=== PATIENT | male | born 1970 | race Caucasian/White ===

== ENCOUNTER 2020-12-20 07:50 | Inpatient (IN) | payer OTHER ==
[2020-12-20 08:09] VITALS: BMI 24.4
[2020-12-20 09:36] LABS: BASO % 1.9 % (0-2.0); EOS % 4.7 % (0-4.5); HEMOGLOBIN 7.4 GM/dL (11.7-16.9); INR 1.28 (0.83-1.09); LYMPH % 16.8 % (8-40); MCHC 32.4 g/dl (32.0-35.9); MEAN PLT VOLUME 8.4 fl (7.5-11.1); NEUT % 60.6 % (42.8-82.8); PLATELET COUNT 156 K/MM3 (134-434); PROTHROMBIN TIME (PATIENT) 15.6 SEC (9.7-13.0); RBC 2.98 M/mm3 (4.00-5.60); RDW 24.2 % (11.9-15.9); WHITE BLOOD COUNT 4.8 K/mm3 (4.0-10.0)
[2020-12-20 09:39] LABS: ACTIVATED PTT 35.7 SECONDS (25.2-36.5)
[2020-12-20] MEDS ORDERED: LACTATED RINGERS SOLUTION 1000 ML INFUS.BAG IV STA (09:42)
[2020-12-20] MEDS ORDERED: PANTOPRAZOLE SODIUM 40 MG VIAL IVPUSH ONE (09:43)
[2020-12-20 09:56] LABS: ALBUMIN 3.3 g/dl (3.4-5.0); BLOOD UREA NITROGEN 23.8 mg/dL (7-18); CALCIUM 8.3 mg/dL (8.5-10.1)
[2020-12-20 09:59] LABS: CREATININE 0.5 mg/dL (0.55-1.3)
[2020-12-20 10:00] LABS: BILIRUBIN,TOTAL 0.8 mg/dL (0.2-1); TOT PROT 7.5 g/dl (6.4-8.2)
[2020-12-20] MEDS ORDERED: PANTOPRAZOLE SODIUM 40 MG/100 ML BAG IVPB ONE (10:03)
[2020-12-20] MEDS ORDERED: CEFTRIAXONE 1,000 MG in DEXTROSE 5%-WATER - 50 ML IVPB ONE (10:35)
[2020-12-20] MEDS ORDERED: OCTREOTIDE ACETATE 50 MCG/1 ML - 1 ML VIAL IVPUSH ONE (10:45)
[2020-12-20] MEDS ORDERED: CEFTRIAXONE 1 GM/50 ML BAG ONE (10:47)
[2020-12-20] MEDS ORDERED: OCTREOTIDE ACETATE 100 MCG/1 ML ONE (10:55)
[2020-12-20 14:54] VITALS: BP 110/59; PULSE 77; TEMP 98.8
== END 2020-12-20 18:33 | disposition left against medical advice (07) | DRG 253 ==
LOC: JER 07:50 → JERBED 13:56 → J6S 15:59
PROVIDERS: ADMIT Internal Medicine; ATTEND Internal Medicine
PROC: 30233N1 Transfusion of Nonautologous Red Blood Cells into Peripheral Vein, Percutaneous Approach (ICD-10-PCS; principal; 2020-12-20)
DX: K92.0 Hematemesis (principal); K21.9 Gastro-esophageal reflux disease without esophagitis; K70.30 Alcoholic cirrhosis of liver without ascites; D50.9 Iron deficiency anemia, unspecified; F10.10 Alcohol abuse, uncomplicated; K57.90 Diverticulosis of intestine, part unspecified, without perforation or abscess without bleeding; I85.10 Secondary esophageal varices without bleeding
CPT/HCPCS: 36415; 36430; 74177-TC; 80053; 82272; 83690; 85025; 85610; 85730; 86850; 86900; 86901; 86922; 93005; 93010; 99285-25; C9803; P9058; Q9967; U0003; U0005

== ENCOUNTER 2020-12-21 07:14 | Inpatient (IN) | payer OTHER ==
[2020-12-21 07:30] VITALS: BMI 25.0
[2020-12-21] MEDS ORDERED: CEFTRIAXONE 1,000 MG in DEXTROSE 5%-WATER - 50 ML IVPB ONE (07:49)
[2020-12-21] MEDS ORDERED: PANTOPRAZOLE SODIUM 40 MG VIAL IVPUSH ONE (07:52)
[2020-12-21] MEDS ORDERED: OCTREOTIDE ACETATE 50 MCG/1 ML - 1 ML VIAL IVPUSH ONE (07:53)
[2020-12-21] MEDS ORDERED: PANTOPRAZOLE SODIUM 40 MG/100 ML BAG IVPB ONE (08:10)
[2020-12-21] MEDS ORDERED: CEFTRIAXONE 1 GM/50 ML BAG ONE (08:12)
[2020-12-21 08:21] LABS: BLOOD UREA NITROGEN 17.6 mg/dL (7-18); CALCIUM 8.3 mg/dL (8.5-10.1)
[2020-12-21 08:22] LABS: BASO % 1.2 % (0-2.0); HEMATOCRIT 25.2 % (35.4-49); HEMOGLOBIN 8.1 GM/dL (11.7-16.9); LYMPH % 10.3 % (8-40); MCH 25.4 pg (25.7-33.7); MCHC 32.2 g/dl (32.0-35.9); MEAN CELL VOLUME 79.1 fl (80-96); MEAN PLT VOLUME 8.1 fl (7.5-11.1); MONO % 9.4 % (3.8-10.2); NEUT % 66.1 % (42.8-82.8); PLATELET COUNT 159 K/MM3 (134-434); RBC 3.18 M/mm3 (4.00-5.60); RDW 23.6 % (11.9-15.9); WHITE BLOOD COUNT 5.3 K/mm3 (4.0-10.0)
[2020-12-21 08:24] LABS: CREATININE 0.6 mg/dL (0.55-1.3)
[2020-12-21 08:26] LABS: BILIRUBIN,TOTAL 0.6 mg/dL (0.2-1); TOT PROT 6.9 g/dl (6.4-8.2)
[2020-12-21] MEDS ORDERED: OCTREOTIDE ACETATE 100 MCG/1 ML ONE (09:08)
[2020-12-21] MEDS ORDERED: PNEUMOC 13-VAL CONJ-DIP CRM/PF 0.5 ML DISP.SYRIN IM ONE (12:00)
[2020-12-21] MEDS ORDERED: ONDANSETRON 4 MG/2 ML VIAL IVPUSH PRN (13:04)
[2020-12-21] MEDS ORDERED: ACETAMINOPHEN 325 MG TABLET (FP) PO PRN (13:04)
[2020-12-21] MEDS: FLU VACCINE (FLULAVAL) PF 60 MCG/0.5 ML SYRINGE 2020-2021 IM ONE ×3 (13:08→13:35)
[2020-12-21] MEDS: PNEUMOCOCCAL 23 VACCINE 0.5 ML VIAL IM ONE ×2 (13:09→13:20)
[2020-12-21] MEDS ORDERED: BUPROPION HCL 200 MG PO PRN (13:27)
[2020-12-21] MEDS ORDERED: FOLIC ACID INJECTION - 1 MG, THIAMINE HCL 100 MG, MULTIVIT INJECTION ADULT 10 ML in SOD... IVPB ONE (16:00)
[2020-12-21] MEDS ORDERED: PT OWN MED DRAWER 7, Y5N ONE (21:16)
[2020-12-21] MEDS: NADOLOL 20 MG TABLET (FP) PO SCH (21:36)
[2020-12-22] MEDS: OCTREOTIDE ACETATE 200 MCG, OCTREOTIDE ACETATE 1,000 MCG in DEXTROSE 5%-WATER - 496 ML IVPB SCH ×3 (04:37→13:12)
[2020-12-22 08:46] LABS: HEMATOCRIT 23.2 % (35.4-49); HEMOGLOBIN 7.6 GM/dL (11.7-16.9); MCH 25.7 pg (25.7-33.7); MCHC 32.8 g/dl (32.0-35.9); MEAN CELL VOLUME 78.4 fl (80-96); MEAN PLT VOLUME 8.4 fl (7.5-11.1); PLATELET COUNT 145 K/MM3 (134-434); RBC 2.95 M/mm3 (4.00-5.60); RDW 23.7 % (11.9-15.9); WHITE BLOOD COUNT 3.7 K/mm3 (4.0-10.0)
[2020-12-22 09:03] LABS: CALCIUM 7.1 mg/dL (8.5-10.1)
[2020-12-22 09:04] LABS: BLOOD UREA NITROGEN 6.7 mg/dL (7-18)
[2020-12-22 09:07] LABS: CREATININE 0.5 mg/dL (0.55-1.3)
[2020-12-22] MEDS: FOLIC ACID 1 MG TABLET (FP) PO SCH (09:39)
[2020-12-22] MEDS ORDERED: PANTOPRAZOLE SODIUM 40 MG VIAL IVPUSH SCH ×2 (10:00→22:00)
[2020-12-22] MEDS: SODIUM CHLORIDE 1,000 ML IV SCH ×2 (11:04→22:47)
[2020-12-22] MEDS ORDERED: CEFTRIAXONE 1 GM in DEXTROSE 5%-WATER - 50 ML IVPB ONE (11:04)
[2020-12-22] MEDS ORDERED: DEXTROSE 5%-WATER - 50 ML IVPB ONE (13:06)
[2020-12-22] MEDS ORDERED: cefTRIAXone SODIUM 1 GM VIAL ONE (13:06)
[2020-12-22] MEDS ORDERED: MIDAZOLAM HCL 2 MG/2 ML SINGLE DOSE VIAL ONE (13:54)
[2020-12-22] MEDS ORDERED: BISACODYL 5 MG TABLET.DR (FP) PO ONE (17:00)
[2020-12-22] MEDS ORDERED: POLYETHYLENE GLYCOL 3350 255 GM BTL PO ONE (18:00)
[2020-12-22 19:17] LABS: HEMATOCRIT 25.6 % (35.4-49); HEMOGLOBIN 8.2 GM/dL (11.7-16.9); MCH 25.8 pg (25.7-33.7); MEAN CELL VOLUME 80.5 fl (80-96); MEAN PLT VOLUME 8.3 fl (7.5-11.1); PLATELET COUNT 159 K/MM3 (134-434); RBC 3.18 M/mm3 (4.00-5.60); RDW 23.4 % (11.9-15.9); WHITE BLOOD COUNT 3.8 K/mm3 (4.0-10.0)
[2020-12-22] MEDS ORDERED: PT OWN MED DRAWER 7, Y5N ONE (21:15)
[2020-12-22] MEDS: NADOLOL 20 MG TABLET (FP) PO SCH (21:23)
[2020-12-23 07:17] LABS: BASO % 2.1 % (0-2.0); HEMOGLOBIN 7.7 GM/dL (11.7-16.9); LYMPH % 21.5 % (8-40); MCH 26.2 pg (25.7-33.7); MCHC 33.3 g/dl (32.0-35.9); MEAN CELL VOLUME 78.6 fl (80-96); MEAN PLT VOLUME 7.6 fl (7.5-11.1); MONO % 12.8 % (3.8-10.2); NEUT % 50.6 % (42.8-82.8); PLATELET COUNT 155 K/MM3 (134-434); RBC 2.92 M/mm3 (4.00-5.60); RDW 23.4 % (11.9-15.9); WHITE BLOOD COUNT 3.5 K/mm3 (4.0-10.0)
[2020-12-23 07:31] LABS: CALCIUM 7.1 mg/dL (8.5-10.1)
[2020-12-23 07:32] LABS: MAGNESIUM 1.8 mg/dL (1.8-2.4)
[2020-12-23 07:34] LABS: ALBUMIN 2.6 g/dl (3.4-5.0); BLOOD UREA NITROGEN 4.3 mg/dL (7-18); CREATININE 0.5 mg/dL (0.55-1.3)
[2020-12-23 07:35] LABS: PHOSPHOROUS 2.8 mg/dL (2.5-4.9)
[2020-12-23 07:36] LABS: BILIRUBIN,TOTAL 0.7 mg/dL (0.2-1)
[2020-12-23 09:17] LABS: ANISOCYTOSIS 2+; MACROCYTOSIS 0; OVALOCYTE 1+; PLATELET ESTIMATE DECREASED; TARGET CELLS 1+
[2020-12-23] MEDS ORDERED: SPIRONOLACTONE 25 MG TABLET PO SCH (10:00)
[2020-12-23] MEDS: FOLIC ACID 1 MG TABLET (FP) PO SCH (10:44)
[2020-12-23] MEDS ORDERED: PT OWN MED DRAWER 7, Y5N ONE (21:41)
[2020-12-23] MEDS: NADOLOL 20 MG TABLET (FP) PO SCH (21:42)
[2020-12-24 07:52] LABS: BASO % 1.6 % (0-2.0); EOS % 7.5 % (0-4.5); HEMATOCRIT 23.1 % (35.4-49); HEMOGLOBIN 7.7 GM/dL (11.7-16.9); LYMPH % 28.2 % (8-40); MCHC 33.1 g/dl (32.0-35.9); MEAN CELL VOLUME 78.5 fl (80-96); MEAN PLT VOLUME 7.8 fl (7.5-11.1); MONO % 14.5 % (3.8-10.2); NEUT % 48.2 % (42.8-82.8); PLATELET COUNT 172 K/MM3 (134-434); RBC 2.94 M/mm3 (4.00-5.60); RDW 23.4 % (11.9-15.9); WHITE BLOOD COUNT 3.6 K/mm3 (4.0-10.0)
[2020-12-24 08:05] LABS: ALBUMIN 2.8 g/dl (3.4-5.0); CALCIUM 7.7 mg/dL (8.5-10.1)
[2020-12-24 08:06] LABS: BLOOD UREA NITROGEN 5.3 mg/dL (7-18); MAGNESIUM 1.8 mg/dL (1.8-2.4)
[2020-12-24 08:09] LABS: CREATININE 0.4 mg/dL (0.55-1.3); PHOSPHOROUS 3.4 mg/dL (2.5-4.9)
[2020-12-24 08:10] LABS: BILIRUBIN,TOTAL 0.6 mg/dL (0.2-1); TOT PROT 6.2 g/dl (6.4-8.2)
[2020-12-24] MEDS: FOLIC ACID 1 MG TABLET (FP) PO SCH (10:03)
[2020-12-24 10:56] LABS: ANISOCYTOSIS 1+; MACROCYTOSIS 0; PLATELET ESTIMATE NORMAL
[2020-12-24 13:35] LABS: BASO % 1.3 % (0-2.0); EOS % 7.5 % (0-4.5); HEMATOCRIT 25.1 % (35.4-49); LYMPH % 23.5 % (8-40); MCH 25.5 pg (25.7-33.7); MCHC 31.7 g/dl (32.0-35.9); MEAN CELL VOLUME 80.3 fl (80-96); MEAN PLT VOLUME 8.3 fl (7.5-11.1); MONO % 13.1 % (3.8-10.2); NEUT % 54.6 % (42.8-82.8); PLATELET COUNT 171 K/MM3 (134-434); RBC 3.12 M/mm3 (4.00-5.60); RDW 23.6 % (11.9-15.9); WHITE BLOOD COUNT 4.5 K/mm3 (4.0-10.0)
[2020-12-24 14:19] VITALS: BP 112/62; PULSE 62; TEMP 98.3
== END 2020-12-24 16:52 | disposition home or self-care (01) | DRG 244 ==
LOC: JER 07:14 → JERBED 07:47 → J7W 10:33
PROVIDERS: ADMIT Internal Medicine; ATTEND Student in an Organized Health Care Education/Training Program
PROC: 0DJ08ZZ Inspection of Upper Intestinal Tract, Via Natural or Artificial Opening Endoscopic (ICD-10-PCS; principal; 2020-12-22 11:00)
PROC: 0DBP8ZX Excision of Rectum, Via Natural or Artificial Opening Endoscopic, Diagnostic (ICD-10-PCS; 2020-12-23)
DX: K57.31 Diverticulosis of large intestine without perforation or abscess with bleeding (principal); K70.30 Alcoholic cirrhosis of liver without ascites; F32.9 Major depressive disorder, single episode, unspecified; D62 Acute posthemorrhagic anemia; K92.0 Hematemesis; D50.9 Iron deficiency anemia, unspecified; K64.9 Unspecified hemorrhoids; K76.6 Portal hypertension; K31.89 Other diseases of stomach and duodenum; K29.70 Gastritis, unspecified, without bleeding
CPT/HCPCS: 36415; 80048; 80053; 82728; 83540; 83550; 83735; 84100; 85025; 85027; 86850; 86900; 86901; 86922; 88305-TC; 90732; 93005; 93010; 99285-25; G0008; G0009; Q2036

== ENCOUNTER 2022-01-17 15:11 | Inpatient (IN) | payer OTHER ==
[2022-01-17 15:28] VITALS: BMI 23.4
[2022-01-17] MEDS ORDERED: PANTOPRAZOLE SODIUM 40 MG VIAL IVPUSH ONE (17:21)
[2022-01-17] MEDS ORDERED: OCTREOTIDE ACETATE 50 MCG/1 ML - 1 ML VIAL IVPUSH ONE (17:21)
[2022-01-17] MEDS ORDERED: CEFTRIAXONE 1,000 MG in DEXTROSE 5%-WATER - 50 ML IVPB ONE (17:23)
[2022-01-17] MEDS ORDERED: CEFTRIAXONE 1 GM/50 ML BAG ONE (17:31)
[2022-01-17] MEDS ORDERED: PANTOPRAZOLE SODIUM 40 MG VIAL ONE (17:31)
[2022-01-17] MEDS ORDERED: OCTREOTIDE ACETATE 500 MCG/1 ML - 1 ML VIAL ONE (17:34)
[2022-01-17] MEDS ORDERED: ONDANSETRON 4 MG/2 ML VIAL IVPUSH ONE (17:36)
[2022-01-17] MEDS ORDERED: ONDANSETRON 4 MG/2 ML VIAL ONE (17:49)
[2022-01-17 17:55] LABS: BASO % 0.9 % (0-2.0); EOS % 1.1 % (0-4.5); HEMATOCRIT 28.3 % (35.4-49); HEMOGLOBIN 9.4 GM/dL (11.7-16.9); LYMPH % 19.6 % (8-40); MCHC 33.4 g/dl (32.0-35.9); MEAN CELL VOLUME 83.8 fl (80-96); MEAN PLT VOLUME 9.3 fl (7.5-11.1); MONO % 10.5 % (3.8-10.2); NEUT % 67.9 % (42.8-82.8); PLATELET COUNT 110 10^3/uL (134-434); RBC 3.38 M/mm3 (4.00-5.60); RDW 18.8 % (11.9-15.9); WHITE BLOOD COUNT 8.1 K/mm3 (4.0-10.0)
[2022-01-17] MEDS ORDERED: OCTREOTIDE ACETATE 200 MCG, OCTREOTIDE ACETATE 1,000 MCG in DEXTROSE 5%-WATER - 496 ML IVPB SCH (18:00)
[2022-01-17 18:03] LABS: INR 1.4 (0.83-1.09); PROTHROMBIN TIME (PATIENT) 16.1 SEC (9.7-13.0)
[2022-01-17 18:06] LABS: ACTIVATED PTT 32.9 SECONDS (25.2-36.5)
[2022-01-17 18:13] LABS: CALCIUM 8.3 mg/dL (8.5-10.1)
[2022-01-17 18:14] LABS: ALBUMIN 3.2 g/dl (3.4-5.0); BLOOD UREA NITROGEN 32.1 mg/dL (7-18)
[2022-01-17 18:17] LABS: CREATININE 0.6 mg/dL (0.55-1.3)
[2022-01-17 18:19] LABS: BILIRUBIN,TOTAL 1.3 mg/dL (0.2-1); TOT PROT 6.9 g/dl (6.4-8.2)
[2022-01-17] MEDS ORDERED: SODIUM CHLORIDE 0.9% 500 ML INFUS.BAG IV ONE (18:31)
[2022-01-17 22:15] LABS: URINE APPEARANCE CLEAR; URINE BILIRUBIN NEGATIVE (NEGATIVE); URINE COLOR ORANGE; URINE GLUCOSE (UA) NEGATIVE (NEGATIVE); URINE KETONE 1+ (NEGATIVE); URINE LEUK ESTERASE NEGATIVE (NEGATIVE); URINE NITRITE NEGATIVE (NEGATIVE); URINE PROTEIN NEGATIVE (NEGATIVE); URINE UROBILINOGEN 0.2 mg/dL (0.2-1.0)
[2022-01-18] MEDS: SODIUM CHLORIDE 1,000 ML IV SCH ×2 (05:14→19:45)
[2022-01-18 08:59] LABS: BASO % 1.4 % (0-2.0); EOS % 2.6 % (0-4.5); HEMATOCRIT 23.9 % (35.4-49); HEMOGLOBIN 8.1 GM/dL (11.7-16.9); LYMPH % 15.6 % (8-40); MCH 28.7 pg (25.7-33.7); MCHC 33.7 g/dl (32.0-35.9); MEAN CELL VOLUME 85.2 fl (80-96); NEUT % 70.4 % (42.8-82.8); PLATELET COUNT 72 10^3/uL (134-434); RBC 2.81 M/mm3 (4.00-5.60); RDW 19.3 % (11.9-15.9); WHITE BLOOD COUNT 3.8 K/mm3 (4.0-10.0)
[2022-01-18 09:17] LABS: VENOUS O2 SATURATION 95.9 % (70-80); VENOUS PCO2 37.7 mmHg (38-52); VENOUS PH 7.427 (7.310-7.410)
[2022-01-18 09:26] LABS: ALBUMIN 2.8 g/dl (3.4-5.0)
[2022-01-18 09:27] LABS: CALCIUM 7.7 mg/dL (8.5-10.1); MAGNESIUM 2.1 mg/dL (1.8-2.4)
[2022-01-18 09:29] LABS: CREATININE 0.6 mg/dL (0.55-1.3); PHOSPHOROUS 2.4 mg/dL (2.5-4.9)
[2022-01-18 09:30] LABS: BILIRUBIN,TOTAL 1.6 mg/dL (0.2-1)
[2022-01-18] MEDS ORDERED: PANTOPRAZOLE SODIUM 80 MG in SODIUM CHLORIDE 100 ML IVPB SCH (09:30)
[2022-01-18 09:31] LABS: TOT PROT 5.6 g/dl (6.4-8.2)
[2022-01-18] MEDS ORDERED: PANTOPRAZOLE SODIUM 40 MG VIAL IVPUSH SCH (10:00)
[2022-01-18] MEDS ORDERED: CEFTRIAXONE 1 GM in DEXTROSE 5%-WATER - 50 ML IVPB SCH (10:00)
[2022-01-18] MEDS ORDERED: PANTOPRAZOLE SODIUM 160 MG in SODIUM CHLORIDE 290 ML IVPB SCH (10:15)
[2022-01-18] MEDS ORDERED: CEFTRIAXONE 1 GM/50 ML BAG ONE (10:24)
[2022-01-18 12:50] LABS: BASO % 0.3 % (0-2.0); EOS % 3.2 % (0-4.5); HEMATOCRIT 23.9 % (35.4-49); HEMOGLOBIN 7.9 GM/dL (11.7-16.9); LYMPH % 18.8 % (8-40); MCH 28.8 pg (25.7-33.7); MEAN CELL VOLUME 87.1 fl (80-96); MEAN PLT VOLUME 8.9 fl (7.5-11.1); MONO % 9.9 % (3.8-10.2); NEUT % 67.8 % (42.8-82.8); PLATELET COUNT 68 10^3/uL (134-434); RBC 2.75 M/mm3 (4.00-5.60); RDW 19.9 % (11.9-15.9); WHITE BLOOD COUNT 3.4 K/mm3 (4.0-10.0)
[2022-01-18] MEDS: PANTOPRAZOLE 40 MG TABLET PO SCH (13:14)
[2022-01-18] MEDS: MUPIROCIN 2% TOPICAL OINTMENT FOR DECOLONIZATION NS SCH ×2 (16:24→21:21)
[2022-01-18] MEDS: CHLORHEXIDINE GLUCONATE 4% CLEANSER FOR DECOLONIZATION TP SCH (21:09)
[2022-01-19] MEDS: SODIUM CHLORIDE 1,000 ML IV SCH (04:30)
[2022-01-19 07:13] LABS: HEMOGLOBIN 8.3 GM/dL (11.7-16.9); MCH 29.4 pg (25.7-33.7); MCHC 34.4 g/dl (32.0-35.9); MEAN CELL VOLUME 85.3 fl (80-96); MEAN PLT VOLUME 8.9 fl (7.5-11.1); PLATELET COUNT 70 10^3/uL (134-434); RBC 2.81 M/mm3 (4.00-5.60); RDW 19.3 % (11.9-15.9); WHITE BLOOD COUNT 3.3 K/mm3 (4.0-10.0)
[2022-01-19 08:41] LABS: CALCIUM 7.7 mg/dL (8.5-10.1)
[2022-01-19 08:42] LABS: ALBUMIN 2.9 g/dl (3.4-5.0); BLOOD UREA NITROGEN 7.6 mg/dL (7-18); MAGNESIUM 2.1 mg/dL (1.8-2.4)
[2022-01-19 08:45] LABS: CREATININE 0.5 mg/dL (0.55-1.3); PHOSPHOROUS 2.6 mg/dL (2.5-4.9)
[2022-01-19 08:46] LABS: BILIRUBIN,TOTAL 1.1 mg/dL (0.2-1); TOT PROT 5.7 g/dl (6.4-8.2)
[2022-01-19] MEDS: PANTOPRAZOLE 40 MG TABLET PO SCH (09:23)
[2022-01-19] MEDS: NADOLOL 20 MG TABLET (FP) PO SCH (09:23)
[2022-01-19] MEDS ORDERED: POTASSIUM CHLORIDE TABS 20 MEQ TABLET.ER (FP) PO ONE (10:00)
[2022-01-19] MEDS: MUPIROCIN 2% TOPICAL OINTMENT FOR DECOLONIZATION NS SCH ×2 (10:18→22:23)
[2022-01-19] MEDS ORDERED: FLU VACC QS2021-22(6MOS UP)/PF 60 MCG/0.5 ML SYRINGE IM ONE (15:00)
[2022-01-19] MEDS ORDERED: BISACODYL 5 MG TABLET.DR (FP) PO ONE (16:57)
[2022-01-19] MEDS ORDERED: PEG 3350/NA SULF BICARB CL/KCL 4000 ML SOLN.RECON PO ONE (17:00)
[2022-01-19 19:34] LABS: HEMATOCRIT 28.7 % (35.4-49); HEMOGLOBIN 9.6 GM/dL (11.7-16.9); MCH 29.2 pg (25.7-33.7); MCHC 33.4 g/dl (32.0-35.9); MEAN CELL VOLUME 87.3 fl (80-96); MEAN PLT VOLUME 8.8 fl (7.5-11.1); PLATELET COUNT 98 10^3/uL (134-434); RBC 3.29 M/mm3 (4.00-5.60); RDW 19.7 % (11.9-15.9); WHITE BLOOD COUNT 5.3 K/mm3 (4.0-10.0)
[2022-01-19] MEDS: CHLORHEXIDINE GLUCONATE 4% CLEANSER FOR DECOLONIZATION TP SCH (22:23)
[2022-01-20 06:44] LABS: BASO % 1.5 % (0-2.0); EOS % 7.5 % (0-4.5); HEMATOCRIT 26.9 % (35.4-49); LYMPH % 23.7 % (8-40); MCH 29.1 pg (25.7-33.7); MCHC 33.4 g/dl (32.0-35.9); MEAN PLT VOLUME 9.2 fl (7.5-11.1); MONO % 12.5 % (3.8-10.2); NEUT % 54.8 % (42.8-82.8); PLATELET COUNT 86 10^3/uL (134-434); RBC 3.09 M/mm3 (4.00-5.60); RDW 20.3 % (11.9-15.9); WHITE BLOOD COUNT 3.5 K/mm3 (4.0-10.0)
[2022-01-20 07:10] LABS: ALBUMIN 3.1 g/dl (3.4-5.0); BLOOD UREA NITROGEN 7.3 mg/dL (7-18); CALCIUM 8.1 mg/dL (8.5-10.1); MAGNESIUM 2.1 mg/dL (1.8-2.4)
[2022-01-20 07:13] LABS: CREATININE 0.5 mg/dL (0.55-1.3); PHOSPHOROUS 3.4 mg/dL (2.5-4.9)
[2022-01-20 07:14] LABS: BILIRUBIN,TOTAL 0.9 mg/dL (0.2-1); TOT PROT 6.1 g/dl (6.4-8.2)
[2022-01-20] MEDS: MUPIROCIN 2% TOPICAL OINTMENT FOR DECOLONIZATION NS SCH ×2 (09:26→22:38)
[2022-01-20] MEDS: PANTOPRAZOLE 40 MG TABLET PO SCH (09:26)
[2022-01-20] MEDS: NADOLOL 20 MG TABLET (FP) PO SCH (09:26)
[2022-01-20] MEDS ORDERED: NADOLOL 20 MG TABLET (FP) PO SCH ×2 (14:30→16:03)
[2022-01-20 16:41] LABS: CALCIUM 7.9 mg/dL (8.5-10.1)
[2022-01-20 16:43] LABS: MAGNESIUM 2.2 mg/dL (1.8-2.4)
[2022-01-20 16:45] LABS: CREATININE 0.7 mg/dL (0.55-1.3); PHOSPHOROUS 2.7 mg/dL (2.5-4.9)
[2022-01-20] MEDS: CHLORHEXIDINE GLUCONATE 4% CLEANSER FOR DECOLONIZATION TP SCH (22:38)
[2022-01-21 07:21] LABS: BASO % 1.4 % (0-2.0); EOS % 6.3 % (0-4.5); HEMOGLOBIN 9.1 GM/dL (11.7-16.9); LYMPH % 21.3 % (8-40); MCH 29.2 pg (25.7-33.7); MCHC 33.8 g/dl (32.0-35.9); MEAN CELL VOLUME 86.5 fl (80-96); MEAN PLT VOLUME 8.9 fl (7.5-11.1); MONO % 16.7 % (3.8-10.2); NEUT % 54.3 % (42.8-82.8); PLATELET COUNT 96 10^3/uL (134-434); RBC 3.12 M/mm3 (4.00-5.60); RDW 20.3 % (11.9-15.9); WHITE BLOOD COUNT 3.4 K/mm3 (4.0-10.0)
[2022-01-21 07:41] LABS: ALBUMIN 3.1 g/dl (3.4-5.0); BLOOD UREA NITROGEN 7.6 mg/dL (7-18); MAGNESIUM 2.1 mg/dL (1.8-2.4)
[2022-01-21 07:45] LABS: CREATININE 0.5 mg/dL (0.55-1.3); PHOSPHOROUS 3.4 mg/dL (2.5-4.9)
[2022-01-21 07:46] LABS: BILIRUBIN,TOTAL 1.1 mg/dL (0.2-1); TOT PROT 6.1 g/dl (6.4-8.2)
[2022-01-21] MEDS: MUPIROCIN 2% TOPICAL OINTMENT FOR DECOLONIZATION NS SCH ×2 (09:34→22:17)
[2022-01-21] MEDS: PANTOPRAZOLE 40 MG TABLET PO SCH (09:35)
[2022-01-21] MEDS: CHLORHEXIDINE GLUCONATE 4% CLEANSER FOR DECOLONIZATION TP SCH (22:17)
[2022-01-22 07:02] LABS: EOS % 3.9 % (0-4.5); HEMATOCRIT 27.6 % (35.4-49); HEMOGLOBIN 9.3 GM/dL (11.7-16.9); LYMPH % 14.9 % (8-40); MCH 29.3 pg (25.7-33.7); MCHC 33.5 g/dl (32.0-35.9); MEAN CELL VOLUME 87.4 fl (80-96); MEAN PLT VOLUME 9.5 fl (7.5-11.1); MONO % 15.6 % (3.8-10.2); NEUT % 64.6 % (42.8-82.8); PLATELET COUNT 107 10^3/uL (134-434); RBC 3.16 M/mm3 (4.00-5.60); RDW 20.5 % (11.9-15.9); WHITE BLOOD COUNT 5.1 K/mm3 (4.0-10.0)
[2022-01-22 07:07] LABS: INR 1.29 (0.83-1.09); PROTHROMBIN TIME (PATIENT) 14.9 SEC (9.7-13.0)
[2022-01-22 07:24] LABS: CALCIUM 8.1 mg/dL (8.5-10.1)
[2022-01-22 07:26] LABS: ALBUMIN 3.1 g/dl (3.4-5.0); BLOOD UREA NITROGEN 8.4 mg/dL (7-18)
[2022-01-22 07:29] LABS: BILIRUBIN,TOTAL 0.8 mg/dL (0.2-1); CREATININE 0.6 mg/dL (0.55-1.3); TOT PROT 6.3 g/dl (6.4-8.2)
[2022-01-22 09:15] LABS: ANISOCYTOSIS 1+; MACROCYTOSIS 1+
[2022-01-22] MEDS: PANTOPRAZOLE 40 MG TABLET PO SCH (10:51)
[2022-01-22] MEDS: MUPIROCIN 2% TOPICAL OINTMENT FOR DECOLONIZATION NS SCH (10:52)
[2022-01-22] MEDS: CHLORHEXIDINE GLUCONATE 4% CLEANSER FOR DECOLONIZATION TP SCH (21:26)
[2022-01-23 07:13] LABS: BASO % 1.2 % (0-2.0); EOS % 3.3 % (0-4.5); HEMATOCRIT 27.9 % (35.4-49); HEMOGLOBIN 9.2 GM/dL (11.7-16.9); LYMPH % 16.6 % (8-40); MCH 28.8 pg (25.7-33.7); MCHC 33.1 g/dl (32.0-35.9); MEAN CELL VOLUME 87.1 fl (80-96); MEAN PLT VOLUME 9.4 fl (7.5-11.1); MONO % 19.2 % (3.8-10.2); NEUT % 59.7 % (42.8-82.8); PLATELET COUNT 117 10^3/uL (134-434); RDW 19.9 % (11.9-15.9); WHITE BLOOD COUNT 5.4 K/mm3 (4.0-10.0)
[2022-01-23 07:37] LABS: ALBUMIN 3.1 g/dl (3.4-5.0); BLOOD UREA NITROGEN 7.6 mg/dL (7-18); CALCIUM 8.2 mg/dL (8.5-10.1)
[2022-01-23 07:40] LABS: CREATININE 0.6 mg/dL (0.55-1.3)
[2022-01-23 07:41] LABS: BILIRUBIN,TOTAL 0.8 mg/dL (0.2-1); TOT PROT 6.4 g/dl (6.4-8.2)
[2022-01-23] MEDS: PANTOPRAZOLE 40 MG TABLET PO SCH (09:05)
[2022-01-23] MEDS ORDERED: CHLORHEXIDINE GLUCONATE 4% CLEANSER FOR DECOLONIZATION TP SCH (22:00)
[2022-01-24 09:15] LABS: BASO % 1.3 % (0-2.0); HEMATOCRIT 27.1 % (35.4-49); LYMPH % 17.3 % (8-40); MCH 28.6 pg (25.7-33.7); MCHC 33.1 g/dl (32.0-35.9); MEAN CELL VOLUME 86.4 fl (80-96); MEAN PLT VOLUME 9.1 fl (7.5-11.1); MONO % 18.1 % (3.8-10.2); NEUT % 60.3 % (42.8-82.8); PLATELET COUNT 117 10^3/uL (134-434); RBC 3.14 M/mm3 (4.00-5.60); RDW 20.1 % (11.9-15.9); WHITE BLOOD COUNT 5.1 K/mm3 (4.0-10.0)
[2022-01-24 09:26] LABS: BLOOD UREA NITROGEN 9.1 mg/dL (7-18); CALCIUM 8.1 mg/dL (8.5-10.1)
[2022-01-24 09:29] LABS: CREATININE 0.5 mg/dL (0.55-1.3)
[2022-01-24] MEDS: PANTOPRAZOLE 40 MG TABLET PO SCH (09:44)
[2022-01-24] MEDS ORDERED: BISACODYL 5 MG TABLET.DR (FP) PO ONE (16:00)
[2022-01-24] MEDS ORDERED: PEG 3350/NA SULF BICARB CL/KCL 4000 ML SOLN.RECON PO ONE (17:00)
[2022-01-25] MEDS ORDERED: INSULIN (NOVOLOG) ASPART 100 UNITS/ML 10ML VIAL ONE (07:44)
[2022-01-25] MEDS: PANTOPRAZOLE 40 MG TABLET PO SCH (10:05)
[2022-01-25 12:04] LABS: BASO % 1.7 % (0-2.0); HEMATOCRIT 27.4 % (35.4-49); HEMOGLOBIN 9.1 GM/dL (11.7-16.9); LYMPH % 20.4 % (8-40); MCH 28.6 pg (25.7-33.7); MCHC 33.1 g/dl (32.0-35.9); MEAN CELL VOLUME 86.5 fl (80-96); MEAN PLT VOLUME 9.2 fl (7.5-11.1); MONO % 17.1 % (3.8-10.2); NEUT % 56.8 % (42.8-82.8); PLATELET COUNT 156 10^3/uL (134-434); RBC 3.16 M/mm3 (4.00-5.60); RDW 20.3 % (11.9-15.9); WHITE BLOOD COUNT 3.7 K/mm3 (4.0-10.0)
[2022-01-25 12:30] LABS: CALCIUM 8.3 mg/dL (8.5-10.1)
[2022-01-25 12:31] LABS: ALBUMIN 3.3 g/dl (3.4-5.0); BLOOD UREA NITROGEN 5.5 mg/dL (7-18); MAGNESIUM 2.3 mg/dL (1.8-2.4)
[2022-01-25 12:34] LABS: PHOSPHOROUS 3.2 mg/dL (2.5-4.9)
[2022-01-25 12:35] LABS: CREATININE 0.6 mg/dL (0.55-1.3)
[2022-01-25 12:36] LABS: BILIRUBIN,TOTAL 1.1 mg/dL (0.2-1); TOT PROT 6.9 g/dl (6.4-8.2)
[2022-01-25 15:38] VITALS: PULSE 63; TEMP 98.6
[2022-01-25 17:28] VITALS: BP 102/56
== END 2022-01-25 17:52 | disposition home or self-care (01) | DRG 244 ==
LOC: JER 15:11 → JERBED 18:53 → JICU 01-18 15:11 → J6S 01-23 18:40
PROVIDERS: ADMIT Internal Medicine; ATTEND Internal Medicine
PROC: 30233N1 Transfusion of Nonautologous Red Blood Cells into Peripheral Vein, Percutaneous Approach (ICD-10-PCS; 2022-01-17)
PROC: 0DJ08ZZ Inspection of Upper Intestinal Tract, Via Natural or Artificial Opening Endoscopic (ICD-10-PCS; 2022-01-18)
PROC: 30233L1 Transfusion of Nonautologous Fresh Plasma into Peripheral Vein, Percutaneous Approach (ICD-10-PCS; 2022-01-18)
PROC: 30233K1 Transfusion of Nonautologous Frozen Plasma into Peripheral Vein, Percutaneous Approach (ICD-10-PCS; 2022-01-18)
PROC: 0DJD8ZZ Inspection of Lower Intestinal Tract, Via Natural or Artificial Opening Endoscopic (ICD-10-PCS; principal; 2022-01-25 11:30)
DX: K57.91 Diverticulosis of intestine, part unspecified, without perforation or abscess with bleeding (principal); D61.818 Other pancytopenia; J90 Pleural effusion, not elsewhere classified; D62 Acute posthemorrhagic anemia; D69.6 Thrombocytopenia, unspecified; K92.0 Hematemesis; R18.8 Other ascites; F17.210 Nicotine dependence, cigarettes, uncomplicated; K21.9 Gastro-esophageal reflux disease without esophagitis; K70.30 Alcoholic cirrhosis of liver without ascites; K64.8 Other hemorrhoids
CPT/HCPCS: 36415; 36430; 71045-TC-FY; 76705-TC; 80048; 80053; 81003; 82272; 82728; 82803; 83540; 83550; 83605; 83690; 83735; 84100; 85025; 85027; 85610; 85730; 86850; 86900; 86901; 86922; 90686; 93005; 93010; 94760; 97116-GP; 97162-GP; 99291; C9803-CS; G0008; P9017; P9058; U0003; U0005

== ENCOUNTER 2023-12-08 21:37 | Inpatient (IN) | payer OTHER ==
[2023-12-08] MEDS ORDERED: PANTOPRAZOLE SODIUM 80 MG/200 ML BAG IVPB ONE (22:15)
[2023-12-08 22:20] LABS: EOS % 1.9 % (0-4.5); HEMATOCRIT 37.4 % (35.4-49); HEMOGLOBIN 12.7 GM/dL (11.7-16.9); LYMPH % 16.8 % (8-40); MCH 32.8 pg (25.7-33.7); MEAN CELL VOLUME 96.5 fl (80-96); MEAN PLT VOLUME 9.1 fl (7.5-11.1); MONO % 11.7 % (3.8-10.2); NEUT % 68.6 % (42.8-82.8); PLATELET COUNT 106 10^3/uL (134-434); RBC 3.87 M/mm3 (4.00-5.60); RDW 15.6 % (11.9-15.9); RETICULOCYTES 1.45 % (0.5-1.5); WHITE BLOOD COUNT 5.1 K/mm3 (4.0-10.0)
[2023-12-08 22:27] LABS: INR 1.16 (0.83-1.09); PROTHROMBIN TIME (PATIENT) 13.1 SEC (9.7-13.0)
[2023-12-08 22:30] LABS: ACTIVATED PTT 34.4 SECONDS (25.2-36.5)
[2023-12-08] MEDS: SODIUM CHLORIDE 1,000 ML IV STA (22:30)
[2023-12-08] MEDS: PANTOPRAZOLE SODIUM 80 MG in SODIUM CHLORIDE 100 ML IVPB ONE (22:31)
[2023-12-08 23:19] LABS: POTASSIUM 3.4 mmol/L (3.5-5.1)
[2023-12-08 23:21] LABS: ALBUMIN 3.7 g/dl (3.4-5.0); BLOOD UREA NITROGEN 14.4 mg/dL (7-18); CALCIUM 8.6 mg/dL (8.5-10.1)
[2023-12-08 23:24] LABS: CREATININE 0.5 mg/dL (0.55-1.3)
[2023-12-08 23:26] LABS: BILIRUBIN,TOTAL 1.2 mg/dL (0.2-1); TOT PROT 7.9 g/dl (6.4-8.2)
[2023-12-08] MEDS ORDERED: chlordiazePOXIDE HCL 25 MG CAPSULE ONE (23:34)
[2023-12-08] MEDS: chlordiazePOXIDE HCL 25 MG CAPSULE PO ONE (23:35)
[2023-12-09 02:35] VITALS: BMI 25.1
[2023-12-09] MEDS ORDERED: LORazepam 1 MG TABLET PO PRN (02:36)
[2023-12-09] MEDS: SODIUM CHLORIDE 1,000 ML IV STA (03:22)
[2023-12-09] MEDS: POTASSIUM CHLORIDE ORAL LIQUID 20 MEQ/15 ML PO ONE (03:26)
[2023-12-09 03:34] LABS: BASO % 1.1 % (0-2.0); HEMATOCRIT 34.3 % (35.4-49); HEMOGLOBIN 11.9 GM/dL (11.7-16.9); LYMPH % 18.8 % (8-40); MCH 33.5 pg (25.7-33.7); MCHC 34.8 g/dl (32.0-35.9); MEAN CELL VOLUME 96.2 fl (80-96); MEAN PLT VOLUME 9.1 fl (7.5-11.1); MONO % 12.2 % (3.8-10.2); NEUT % 65.9 % (42.8-82.8); PLATELET COUNT 89 10^3/uL (134-434); RBC 3.57 M/mm3 (4.00-5.60); RDW 15.6 % (11.9-15.9); WHITE BLOOD COUNT 3.4 K/mm3 (4.0-10.0)
[2023-12-09] MEDS: LORazepam 1 MG TABLET PO SCH (04:38)
[2023-12-09 07:21] LABS: BASO % 1.1 % (0-2.0); EOS % 2.6 % (0-4.5); HEMATOCRIT 34.2 % (35.4-49); HEMOGLOBIN 11.4 GM/dL (11.7-16.9); LYMPH % 22.9 % (8-40); MCH 32.7 pg (25.7-33.7); MCHC 33.4 g/dl (32.0-35.9); MEAN CELL VOLUME 97.6 fl (80-96); MEAN PLT VOLUME 9.4 fl (7.5-11.1); MONO % 13.1 % (3.8-10.2); NEUT % 60.3 % (42.8-82.8); PLATELET COUNT 91 10^3/uL (134-434); RDW 15.3 % (11.9-15.9); WHITE BLOOD COUNT 3.1 K/mm3 (4.0-10.0)
[2023-12-09 07:39] LABS: POTASSIUM 4.2 mmol/L (3.5-5.1)
[2023-12-09 07:49] LABS: ALBUMIN 3.2 g/dl (3.4-5.0); BLOOD UREA NITROGEN 10.8 mg/dL (7-18); CALCIUM 7.8 mg/dL (8.5-10.1)
[2023-12-09 07:53] LABS: CREATININE 0.4 mg/dL (0.55-1.3); PHOSPHOROUS 2.7 mg/dL (2.5-4.9)
[2023-12-09 07:55] LABS: TOT PROT 6.7 g/dl (6.4-8.2)
[2023-12-09 07:56] LABS: BILIRUBIN,TOTAL 1.5 mg/dL (0.2-1)
[2023-12-09 08:59] LABS: BILIRUBIN,DIRECT 0.4 mg/dL (0.0-0.2)
[2023-12-09] MEDS: THIAMINE 100 MG TABLET PO SCH (09:25)
[2023-12-09] MEDS: PANTOPRAZOLE SODIUM 40 MG VIAL IVPUSH SCH (09:25)
[2023-12-09] MEDS: FOLIC ACID 1 MG TABLET (FP) PO SCH (09:25)
[2023-12-09] MEDS: THIAMINE HCL 200 MG/2 ML VIAL IVPB ONE (11:45)
[2023-12-09] MEDS: PHYTONADIONE 10 MG/1 ML AMP IVPB ONE (11:53)
[2023-12-09 13:03] LABS: HEMATOCRIT 35.5 % (35.4-49); HEMOGLOBIN 12.1 GM/dL (11.7-16.9); LYMPH % 21.1 % (8-40); MCH 33.3 pg (25.7-33.7); MCHC 34.1 g/dl (32.0-35.9); MEAN CELL VOLUME 97.6 fl (80-96); MONO % 12.5 % (3.8-10.2); NEUT % 63.4 % (42.8-82.8); PLATELET COUNT 93 10^3/uL (134-434); RBC 3.64 M/mm3 (4.00-5.60); RDW 15.7 % (11.9-15.9); WHITE BLOOD COUNT 3.1 K/mm3 (4.0-10.0)
[2023-12-09] MEDS: PANTOPRAZOLE SODIUM 80 MG in SODIUM CHLORIDE 100 ML IVPB SCH (15:02)
[2023-12-09] MEDS: CEFTRIAXONE 1 GM in DEXTROSE 5%-WATER - 50 ML IVPB ONE ×2 (15:02→15:03)
[2023-12-09] MEDS: OCTREOTIDE ACETATE 50 MCG/1 ML - 1 ML VIAL IVPUSH ONE (15:02)
[2023-12-09] MEDS: OCTREOTIDE ACETATE 200 MCG, OCTREOTIDE ACETATE 1,000 MCG in DEXTROSE 5%-WATER - 496 ML IVPB SCH (15:02)
[2023-12-09 15:19] LABS: MCH 33.2 pg (25.7-33.7); MCHC 34.3 g/dl (32.0-35.9); MEAN CELL VOLUME 96.7 fl (80-96); MEAN PLT VOLUME 9.2 fl (7.5-11.1); PLATELET COUNT 90 10^3/uL (134-434); RBC 3.62 M/mm3 (4.00-5.60); RDW 15.7 % (11.9-15.9); WHITE BLOOD COUNT 3.1 K/mm3 (4.0-10.0)
[2023-12-09] MEDS: KETOCONAZOLE 2% CREAM - 60GM TUBE TP SCH (17:00)
[2023-12-09 18:36] LABS: BASO % 1.4 % (0-2.0); EOS % 3.4 % (0-4.5); HEMATOCRIT 35.7 % (35.4-49); HEMOGLOBIN 11.8 GM/dL (11.7-16.9); LYMPH % 17.1 % (8-40); MCH 32.5 pg (25.7-33.7); MCHC 33.1 g/dl (32.0-35.9); MEAN CELL VOLUME 98.1 fl (80-96); MEAN PLT VOLUME 8.5 fl (7.5-11.1); MONO % 12.4 % (3.8-10.2); NEUT % 65.7 % (42.8-82.8); PLATELET COUNT 97 10^3/uL (134-434); RBC 3.63 M/mm3 (4.00-5.60); RDW 15.3 % (11.9-15.9); WHITE BLOOD COUNT 3.6 K/mm3 (4.0-10.0)
[2023-12-09] MEDS: NYSTATIN 100000 UNIT/GM TOPICAL OINTMENT 15 GM TUBE TP SCH (22:25)
[2023-12-10] MEDS: LORazepam 1 MG TABLET PO SCH (05:21)
[2023-12-10 07:11] LABS: HEMOGLOBIN 12.2 GM/dL (11.7-16.9); MCH 34.1 pg (25.7-33.7); MEAN CELL VOLUME 97.3 fl (80-96); MEAN PLT VOLUME 9.3 fl (7.5-11.1); PLATELET COUNT 94 10^3/uL (134-434); RBC 3.59 M/mm3 (4.00-5.60); RDW 15.8 % (11.9-15.9); WHITE BLOOD COUNT 3.9 K/mm3 (4.0-10.0)
[2023-12-10 07:15] LABS: BASO % 1.1 % (0-2.0); EOS % 4.6 % (0-4.5); HEMATOCRIT 35.5 % (35.4-49); HEMOGLOBIN 12.2 GM/dL (11.7-16.9); LYMPH % 19.8 % (8-40); MCH 33.8 pg (25.7-33.7); MCHC 34.5 g/dl (32.0-35.9); MEAN PLT VOLUME 9.1 fl (7.5-11.1); MONO % 10.8 % (3.8-10.2); NEUT % 63.7 % (42.8-82.8); PLATELET COUNT 96 10^3/uL (134-434); RBC 3.62 M/mm3 (4.00-5.60); RDW 15.5 % (11.9-15.9); WHITE BLOOD COUNT 3.9 K/mm3 (4.0-10.0)
[2023-12-10 07:31] LABS: POTASSIUM 3.7 mmol/L (3.5-5.1)
[2023-12-10 08:00] LABS: ALBUMIN 3.4 g/dl (3.4-5.0); BLOOD UREA NITROGEN 12.6 mg/dL (7-18)
[2023-12-10 08:01] LABS: MAGNESIUM 1.9 mg/dL (1.8-2.4)
[2023-12-10 08:04] LABS: BILIRUBIN,TOTAL 1.6 mg/dL (0.2-1); PHOSPHOROUS 2.7 mg/dL (2.5-4.9)
[2023-12-10 08:05] LABS: CREATININE 0.5 mg/dL (0.55-1.3)
[2023-12-10 08:06] LABS: TOT PROT 6.7 g/dl (6.4-8.2)
[2023-12-10] MEDS: PANTOPRAZOLE SODIUM 40 MG VIAL IVPUSH SCH (10:01)
[2023-12-10 17:12] LABS: BASO % 1.3 % (0-2.0); EOS % 4.2 % (0-4.5); LYMPH % 21.7 % (8-40); MCH 33.6 pg (25.7-33.7); MCHC 34.3 g/dl (32.0-35.9); MEAN CELL VOLUME 97.8 fl (80-96); MEAN PLT VOLUME 9.1 fl (7.5-11.1); MONO % 10.3 % (3.8-10.2); NEUT % 62.5 % (42.8-82.8); PLATELET COUNT 90 10^3/uL (134-434); RBC 3.58 M/mm3 (4.00-5.60); RDW 15.7 % (11.9-15.9); WHITE BLOOD COUNT 3.2 K/mm3 (4.0-10.0)
[2023-12-11] MEDS ORDERED: LORazepam 0.5 MG TABLET PO PRN
[2023-12-11] MEDS: LORazepam 0.5 MG TABLET PO SCH (05:58)
[2023-12-11] MEDS: CEFTRIAXONE 1 GM in DEXTROSE 5%-WATER - 50 ML IVPB SCH (09:25)
[2023-12-11 10:18] LABS: BASO % 1.8 % (0-2.0); EOS % 6.2 % (0-4.5); HEMATOCRIT 37.6 % (35.4-49); HEMOGLOBIN 13.1 GM/dL (11.7-16.9); LYMPH % 20.8 % (8-40); MCH 33.9 pg (25.7-33.7); MCHC 34.8 g/dl (32.0-35.9); MEAN CELL VOLUME 97.4 fl (80-96); MEAN PLT VOLUME 9.7 fl (7.5-11.1); MONO % 9.4 % (3.8-10.2); NEUT % 61.8 % (42.8-82.8); PLATELET COUNT 101 10^3/uL (134-434); RBC 3.86 M/mm3 (4.00-5.60); RDW 15.8 % (11.9-15.9); WHITE BLOOD COUNT 2.9 K/mm3 (4.0-10.0)
[2023-12-11 10:20] LABS: INR 1.11 (0.83-1.09); PROTHROMBIN TIME (PATIENT) 12.5 SEC (9.7-13.0)
[2023-12-11 10:22] LABS: ACTIVATED PTT 34.7 SECONDS (25.2-36.5)
[2023-12-11 10:41] LABS: POTASSIUM 3.9 mmol/L (3.5-5.1)
[2023-12-11 10:54] LABS: BLOOD UREA NITROGEN 8.6 mg/dL (7-18); CALCIUM 8.6 mg/dL (8.5-10.1)
[2023-12-11 10:56] LABS: ALBUMIN 3.6 g/dl (3.4-5.0); MAGNESIUM 2.1 mg/dL (1.8-2.4)
[2023-12-11 10:57] LABS: CREATININE 0.5 mg/dL (0.55-1.3); PHOSPHOROUS 3.5 mg/dL (2.5-4.9)
[2023-12-11 10:59] LABS: BILIRUBIN,TOTAL 1.8 mg/dL (0.2-1); TOT PROT 7.8 g/dl (6.4-8.2)
[2023-12-11 21:42] LABS: BASO % 2.3 % (0-2.0); EOS % 5.1 % (0-4.5); HEMATOCRIT 37.9 % (35.4-49); HEMOGLOBIN 12.9 GM/dL (11.7-16.9); MCH 33.4 pg (25.7-33.7); MCHC 33.9 g/dl (32.0-35.9); MEAN CELL VOLUME 98.4 fl (80-96); MEAN PLT VOLUME 9.5 fl (7.5-11.1); MONO % 10.1 % (3.8-10.2); NEUT % 64.5 % (42.8-82.8); PLATELET COUNT 102 10^3/uL (134-434); RBC 3.86 M/mm3 (4.00-5.60); RDW 15.4 % (11.9-15.9); WHITE BLOOD COUNT 4.1 K/mm3 (4.0-10.0)
[2023-12-12 08:05] LABS: BASO % 1.8 % (0-2.0); EOS % 6.4 % (0-4.5); HEMATOCRIT 38.6 % (35.4-49); HEMOGLOBIN 13.1 GM/dL (11.7-16.9); LYMPH % 21.1 % (8-40); MCH 33.5 pg (25.7-33.7); MEAN CELL VOLUME 98.6 fl (80-96); MEAN PLT VOLUME 9.7 fl (7.5-11.1); MONO % 10.9 % (3.8-10.2); NEUT % 59.8 % (42.8-82.8); PLATELET COUNT 105 10^3/uL (134-434); RBC 3.92 M/mm3 (4.00-5.60); RDW 15.6 % (11.9-15.9); WHITE BLOOD COUNT 4.1 K/mm3 (4.0-10.0)
[2023-12-12 08:07] LABS: POTASSIUM 3.7 mmol/L (3.5-5.1)
[2023-12-12 08:10] LABS: BLOOD UREA NITROGEN 11.6 mg/dL (7-18); CALCIUM 9.2 mg/dL (8.5-10.1)
[2023-12-12 08:13] LABS: CREATININE 0.7 mg/dL (0.55-1.3)
[2023-12-12 10:37] LABS: ALBUMIN 3.7 g/dl (3.4-5.0)
[2023-12-12 10:40] LABS: BILIRUBIN,DIRECT 0.3 mg/dL (0.0-0.2)
[2023-12-12 10:42] LABS: BILIRUBIN,TOTAL 1.2 mg/dL (0.2-1); TOT PROT 7.5 g/dl (6.4-8.2)
[2023-12-12 19:00] LABS: BASO % 0.9 % (0-2.0); HEMATOCRIT 38.1 % (35.4-49); LYMPH % 16.4 % (8-40); MCH 33.6 pg (25.7-33.7); MCHC 34.2 g/dl (32.0-35.9); MEAN CELL VOLUME 98.1 fl (80-96); MEAN PLT VOLUME 9.5 fl (7.5-11.1); MONO % 11.3 % (3.8-10.2); NEUT % 68.4 % (42.8-82.8); PLATELET COUNT 115 10^3/uL (134-434); RBC 3.88 M/mm3 (4.00-5.60); RDW 15.9 % (11.9-15.9); WHITE BLOOD COUNT 4.1 K/mm3 (4.0-10.0)
[2023-12-12] MEDS: IBUPROFEN 400 MG TABLET (FP) PO ONE (20:34)
[2023-12-13 07:57] LABS: BASO % 1.4 % (0-2.0); EOS % 7.6 % (0-4.5); HEMATOCRIT 38.9 % (35.4-49); LYMPH % 23.9 % (8-40); MCHC 33.4 g/dl (32.0-35.9); MEAN CELL VOLUME 98.9 fl (80-96); MEAN PLT VOLUME 9.6 fl (7.5-11.1); MONO % 12.8 % (3.8-10.2); NEUT % 54.3 % (42.8-82.8); PLATELET COUNT 114 10^3/uL (134-434); RBC 3.94 M/mm3 (4.00-5.60); RDW 15.6 % (11.9-15.9); WHITE BLOOD COUNT 4.5 K/mm3 (4.0-10.0)
[2023-12-13 08:14] LABS: POTASSIUM 3.7 mmol/L (3.5-5.1)
[2023-12-13 08:18] LABS: ALBUMIN 3.4 g/dl (3.4-5.0); CALCIUM 8.7 mg/dL (8.5-10.1); MAGNESIUM 2.1 mg/dL (1.8-2.4)
[2023-12-13 08:19] LABS: BLOOD UREA NITROGEN 11.8 mg/dL (7-18)
[2023-12-13 08:21] LABS: CREATININE 0.5 mg/dL (0.55-1.3)
[2023-12-13 08:23] LABS: BILIRUBIN,TOTAL 1.3 mg/dL (0.2-1); TOT PROT 7.3 g/dl (6.4-8.2)
[2023-12-13 08:31] LABS: INR 1.08 (0.83-1.09); PROTHROMBIN TIME (PATIENT) 12.2 SEC (9.7-13.0)
[2023-12-13 14:35] VITALS: BP 133/70; PULSE 85; RESP 18; TEMP 98.6
== END 2023-12-13 05:00 | disposition home or self-care (01) | DRG 253 ==
LOC: JER 21:37 → JERBED 23:46 → J4W 12-09 02:10 → OBSVTOIN 12-09 02:32 → J4S 12-09 02:42 → J4W 12-09 02:44
PROVIDERS: ADMIT Student in an Organized Health Care Education/Training Program; ATTEND Internal Medicine
PROC: 0DJ08ZZ Inspection of Upper Intestinal Tract, Via Natural or Artificial Opening Endoscopic (ICD-10-PCS; principal; 2023-12-09 12:15)
DX: K92.2 Gastrointestinal hemorrhage, unspecified (principal); D61.818 Other pancytopenia; D69.6 Thrombocytopenia, unspecified; E87.6 Hypokalemia; K76.6 Portal hypertension; B35.3 Tinea pedis; K70.30 Alcoholic cirrhosis of liver without ascites; F10.239 Alcohol dependence with withdrawal, unspecified; K21.9 Gastro-esophageal reflux disease without esophagitis; K31.89 Other diseases of stomach and duodenum; D64.9 Anemia, unspecified; F32.A Depression, unspecified; K70.10 Alcoholic hepatitis without ascites; K76.9 Liver disease, unspecified; K57.90 Diverticulosis of intestine, part unspecified, without perforation or abscess without bleeding; K29.70 Gastritis, unspecified, without bleeding
CPT/HCPCS: 36415; 71046-TC-FY; 74183-TC; 76705-TC; 80048; 80053; 80076; 82248; 82272; 82550; 82607; 82728; 82746; 83540; 83550; 83690; 83735; 84100; 85025; 85027; 85045; 85610; 85730; 86704; 86803; 86850; 86900; 86901; 87340; 87517; 93005; 93010; 93306-TC; 99285-25; G0378